=== PATIENT | male | born 1945 | race Caucasian/White ===

== ENCOUNTER 2020-08-09 10:16 | Outpatient (CLI) | payer MEDICARE ==
--- NOTE | 2020-08-09 12:55 | MRI ---
MRI OF THE RIGHT SHOULDER: DATE: 08/09/2020. PROVIDED CLINICAL HISTORY: Right shoulder pain. FINDINGS: Evaluation is limited by patient motion. There is high-grade partial thickness undersurface tearing involving the distal conjoined tendon at t he footplate. The components of the rotator cuff appear otherwise intact. The longhead biceps tendo n appears grossly intact and normally located. There is a large glenohumeral joint effusion. There is abnormal signal present involving the superio r labrum, posterior-superior labrum and posterior labrum compatible with a nondisplaced tear. There is full-thickness articular cartilage loss involving the cranial aspects of the humeral head. There is full-thickness articular cartilage loss involving the caudal aspects of the clinoid. Acromioclavicular joint osteoarthrosis is demonstrated, without significant mass effect upon the subj acent supraspinatus. The degree of subacromial subdeltoid bursal fluid appears physiologic. Rotator cuff muscular volume appears normal. No focal concerning regional marrow or muscular signal abnormality apparent. IMPRESSION: 1. Small high-grade partial thickness undersurface tear involving the distal conjoined tendon of th e footplate. 2. Superior labrum anterior to posterior tear with propagation to involving the posterior labrum in a nondisplaced manner. 3. Prominent glenohumeral articular cartilage loss. 4. Large glenohumeral joint effusion. 5. Acromioclavicular joint osteoarthrosis. POS: AH
== END 2020-08-09 10:17 | disposition home or self-care (01) ==
LOC: BICMRI 10:16
DX: M75.41 Impingement syndrome of right shoulder (principal); M25.411 Effusion, right shoulder; M19.011 Primary osteoarthritis, right shoulder; M24.111 Other articular cartilage disorders, right shoulder; S43.431A Superior glenoid labrum lesion of right shoulder, initial encounter